=== PATIENT | female | born 1980 ===

== ENCOUNTER 2017-11-09 02:37 | Emergency (ER) | payer MEDICAID ==
[2017-11-09 02:49] VITALS: RESP 18; TEMP 98.1
[2017-11-09 03:09] LABS: RBC URINE 5 /hpf (0-3); URINE BILIRUBIN NEGATIVE (NEGATIVE); URINE BLOOD NEGATIVE (NEGATIVE); URINE COLOR Yellow (YELLOW); URINE GLUCOSE (UA) NORMAL (Normal); URINE KETONE NEGATIVE (NEGATIVE); URINE LEUKOCYTE ESTERASE 1+ Leu/uL (Negative); URINE PROTEIN NEGATIVE (NEGATIVE); URINE UROBILINOGEN NORMAL mg/dL (0.2-1.0); WBC URINE 13 /hpf (0-5)
[2017-11-09] MEDS ORDERED: cefTRIAXone (Rocephin) 250 mg Inj IM STA (03:15)
--- NOTE | 2017-11-09 03:38 | C.PDOC ---
History Of Present Illness 37 yo female c/o vaginal discharge , foul odor and itching for two days. Pt notes symptoms started the day after unprotected intercourse with new partner. Denies abdominal pain, fever, urinary frequency, dysuria, or h/o STDs. Time Seen by Provider: 11/09/17 02:55 Chief Complaint (Nursing): Female Genitourinary History Per: Patient History/Exam Limitations: no limitations Onset/Duration Of Symptoms: Days Current Symptoms Are (Timing): Still Present Past Medical History Vital Signs: Last Vital Signs Temp 98.1 F 11/09/17 03:47 Pulse 59 L 11/09/17 03:47 Resp 18 11/09/17 03:47 BP 130/86 11/09/17 03:47 Pulse Ox 100 11/09/17 03:47 - [facility] Procedures CLOSURE SKIN & SUBCUTANEOUS NEC (02/07/03) EXCIS DEBRIDE OF WOUND, INFECT, OR BURN (02/07/03) INJECT/INFUSE NEC (05/02/04) VACUUM EXTRACT DEL NEC (06/19/99) Family History: States: Unknown Family Hx - Social History Hx Alcohol Use: No Hx Substance Use: No Review Of Systems Except As Marked, All Systems Reviewed And Found Negative. Genitourinary: Positive for: Vaginal Discharge Physical Exam - Physical Exam Appears: Well, Non-toxic, No Acute Distress Skin: Normal Color, Warm, Dry Head: Atraumatic, Normacephalic Eye(s): bilateral: Normal Inspection, EOMI Nose: Normal Neck: Normal, Normal ROM, Supple Chest: Symmetrical Respiratory: No Accessory Muscle Use Gastrointestinal/Abdominal: Normal Exam, Soft, No Tenderness Back: Normal Inspection Pelvic: Normal External Exam, Vaginal Discharge ((+) thick white discharge, no clumping), No Cervical Motion Tenderness, No Cervix Open, No Adnexal Tenderness , Other ((+) nuva ring) Extremity: Normal ROM Neurological/Psych: Oriented x3, Normal Speech ED Course And Treatment O2 Sat by Pulse Oximetry: 96 Progress Note: PT requests STD treatment, rocephin and zithromycin ordered. Pt instructed to follow up with [facility] in 1-2 days or return to ER if symtpoms persist or worsen. Disposition - Disposition Disposition: HOME/ ROUTINE Disposition Time: 03:37 Condition: STABLE Additional Instructions: Follow up with [facility] [facility] in 1-2 days. Return to ER if symptoms persist or worsen. Prescriptions: Metronidazole [Flagyl] 500 mg PO BID #14 tab Miconazole/Cleanser 17 On Wipe [Monistat 7 Combination Pack] 1 each VG HS #1 kit Instructions: Vaginitis (ED) Forms: [facility] [employer] [facility] ([place]uan) - Clinical Impression Clinical Impression: Vaginitis
[2017-11-09 03:48] VITALS: BP 130/86; PULSE 59
[2017-11-09 04:36] VITALS: O2SAT 96
== END 2017-11-09 03:51 | disposition home or self-care (01) ==
LOC: C.ER 02:37
DX: N76.0 Acute vaginitis (principal)
CPT/HCPCS: 81001; 84703; 87086; 87181; 87491; 87591; 96372; 99285; J0696